=== PATIENT | male | born 1960 | race Caucasian/White ===

== ENCOUNTER 2019-05-29 07:16 | Day surgery (SDC) | payer OTHER ==
[~2019-05-29 07:16] MED LIST: Lactated Ringers 1,000 ML IV SCH; Lidocaine 1%/Sod Bicarbonate in NS 8.4% 1 ML Syringe IDERM PRN; Sodium Chloride 0.9% 10 ML Syringe FLUSH PRN
[2019-05-29] MEDS ORDERED: Lidocaine 1% 4 ML ONE (07:34)
[2019-05-29] MEDS ORDERED: Ketamine 500 mg/10 ML MDV ONE (07:35)
[2019-05-29] MEDS ORDERED: Propofol 200 MG/20 ML SDV ONE (07:35)
--- NOTE | 2019-05-29 08:03 | PCM.PREANE ---
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) Gastrointestinal: No Symptoms Neurological: No Symptoms Other: Reports: None - Physical Assessment NPO Status Date: 05/28/19 NPO Status Time: 04:15 ASA Class: 2 Mental Status: Alert & Oriented x3 Airway Class: Mallampati = 1 Dentition: Reports: Normal Dentition ROM/Head Extension: Full Lungs: Clear to Auscultation, Normal Respiratory Effort Cardiovascular: Regular Rate, Regular Rhythm - Allergies Allergies/Adverse Reactions: Allergies Allergy/AdvReac Type Severity Reaction Status Date / Time No Known Allergies Allergy Verified 05/28/19 13:30 - Anesthesia Plan Beta Herb: Metoprolol - Acknowledgements Anesthesia Type Planned: MAC Pt an Appropriate Candidate for the Planned Anesthesia: Yes Alternatives and Risks of Anesthesia Discussed w Pt/Guardian: Yes Pt/Guardian Understands and Agrees with Anesthesia Plan: Yes PreAnesthesia Questionnaire HEENT History: Reports: Impaired Vision Other HEENT History: Wears glasses, Reports sensitivity to strong smells with subsequent headache. 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, chest pain, claudication Respiratory History: Reports: Sleep Apnea Gastrointestinal History: Reports: Other (See Below) Other Gastrointestinal History: abdominal hernia Genitourinary History: Reports: None, Renal Calculus [employer] History: Reports: None Musculoskeletal History: Reports: Other (See Below) Other Musculoskeletal History: ACL sx to right knee 1978, Left ankle injury Neurological History: Reports: Headaches, Chronic, Migraines Psychiatric History: Reports: None Endocrine/Metabolic History: Reports: Obesity/BMI 30+ Hematologic History: Reports: None Immunologic History: Reports: None Oncologic (Cancer) History: Reports: None Dermatologic History: Reports: None - Infectious Disease History Infectious Disease History: Reports: Chicken Pox, Meningitis - Past Surgical History Head Surgeries/Procedures: Reports: None HEENT Surgical History: Reports: None Cardiovascular Surgical History: Reports: None Respiratory Surgical History: Reports: None GI Surgical History: Reports: Appendectomy, Hernia Repair/Other Female Surgical History: Reports: None Male Surgical History: Reports: None Endocrine Surgical History: Reports: None Neurological Surgical History: Reports: None Musculoskeletal Surgical History: Reports: Arthroscopic Knee Oncologic Surgical History: Reports: None Dermatological Surgical History: Reports: None - SUBSTANCE USE Smoking Status *Q: Never Smoker Recreational Drug Use History: No - HOME MEDS Home Medications: Home Meds Metoprolol Succinate [Toprol XL] 25 mg PO DAILY 05/28/19 [History] - CURRENT (IN HOUSE) MEDS Current Meds: Current Medications Lactated Ringer's (Ringers, Lactated) 1,000 mls @ 125 mls/hr IV ASDIRECTED MARY Stop: 05/29/19 23:00 Lidocaine/Sodium Bicarbonate (Buffered Lidocaine 1% In Ns 8.4%) 0.25 ml IDERM ONETIME PRN PRN Reason: Prior to IV Start Stop: 05/29/19 18:00 Sodium Chloride (Saline Flush) 10 ml FLUSH ASDIRECTED PRN PRN Reason: Keep Vein Open Stop: 05/29/19 18:00 Discontinued Medications Lidocaine HCl (Xylocaine-Mpf 1%) Confirm Administered Dose 4 mls @ as directed .ROUTE .STK-MED ONE Stop: 05/29/19 07:35 Ketamine HCl (Ketalar) Confirm Administered Dose 500 mg .ROUTE .STK-MED ONE Stop: 05/29/19 07:36 Propofol (Diprivan 20 Ml) Confirm Administered Dose 400 mg .ROUTE .STK-MED ONE Stop: 05/29/19 07:36
--- NOTE | 2019-05-29 08:32 | PCM.POSTAN ---
POST ANESTHESIA ASSESSMENT - MENTAL STATUS Mental Status: Alert, Oriented - VITAL SIGNS Vital Signs: Last Vital Signs Temp 36.8 C 05/29/19 07:20 Pulse 76 05/29/19 07:20 Resp 18 05/29/19 07:20 BP 146/86 H 05/29/19 07:40 Pulse Ox 93 L 05/29/19 07:20 - RESPIRATORY Respiratory Status: Respiratory Rate WNL, Airway Patent, O2 Saturation Stable - CARDIOVASCULAR CV Status: Pulse Rate WNL, Blood Pressure Stable - GASTROINTESTINAL GI Status: No Symptoms - PAIN Pain Score: 0 - POST OP HYDRATION Hydration Status: Adequate & Stable
--- NOTE | 2019-05-29 08:34 | PCM48HPAN ---
Post Anesthesia Note - EVALUATION WITHIN 48HRS OF ANESTHETIC Vital Signs in Normal Range: Yes Patient Participated in Evaluation: Yes Respiratory Function Stable: Yes Airway Patent: Yes Cardiovascular Function Stable: Yes Hydration Status Stable: Yes Pain Control Satisfactory: Yes Nausea and Vomiting Control Satisfactory: Yes Mental Status Recovered: Yes Vital Signs: Last Vital Signs 133/86, 92% RA, 0/10, 72, 20, 99.6 Temp 36.8 C 05/29/19 07:20 Pulse 76 05/29/19 07:20 Resp 18 05/29/19 07:20 BP 146/86 H 05/29/19 07:40 Pulse Ox 93 L 05/29/19 07:20
--- NOTE | 2019-05-29 10:19 | OR ---
DATE OF OPERATION: 05/29/2019 SURGEON: Raul Bruce MD PREOPERATIVE DIAGNOSIS: Colorectal cancer screening. POSTOPERATIVE DIAGNOSIS: Colorectal cancer screening. OPERATION PERFORMED: Screening colonoscopy. ANESTHESIA: MAC. FINDINGS: Normal colonoscopy. No polyps. No diverticulosis. He had an excellent bowel prep. PATHOLOGY: None. ESTIMATED BLOOD LOSS: None. COMPLICATIONS: None. DISPOSITION: Stable at the end of the procedure. INDICATION: The patient is a 58-year-old male who has never had a colonoscopy. He is asymptomatic. He has no family history, except for father with polyps. He was referred for colorectal cancer screening. He was fully informed of the major risks, benefits, and alternatives. These are detailed on my H and P. He gave informed consent of what was done. DESCRIPTION OF PROCEDURE: The patient was brought to the gastro suite and placed in the left lateral decubitus position. He was given MAC. Digital rectal exam was performed. This was unremarkable. I introduced the colonoscope with copious lubrication. I advanced the scope with gentle forward pressure keeping the lumen in view at all times. I documented the cecum photographically. I slowly investigated the mucosa of the colon from the cecum back to the anus in an exam lasting more than 8 minutes. A thorough careful examination failed to demonstrate polyps, diverticulosis. I had an excellent look due to an excellent bowel prep. At the end of the procedure, the scope was withdrawn. He was awakened from anesthesia. PLAN: He will need another colonoscopy in 10 years for screening. TONIA /[id number]
== END 2019-05-29 09:12 | disposition home or self-care (01) ==
LOC: JD.SDS 07:16
PROVIDERS: ATTEND Surgery
DX: Z12.11 Encounter for screening for malignant neoplasm of colon (principal); E78.1 Pure hyperglyceridemia; I10 Essential (primary) hypertension; E78.00 Pure hypercholesterolemia, unspecified; G43.909 Migraine, unspecified, not intractable, without status migrainosus; E66.9 Obesity, unspecified; Z79.899 Other long term (current) drug therapy; Z68.41 Body mass index [BMI] 40.0-44.9, adult
CPT/HCPCS: 45378; J2001; J2704; J7120; 00812